=== PATIENT | female | born 1995 ===

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

== ENCOUNTER → 2017-06-14 | Outpatient (CLI) | payer BC, OTHER | END | disposition home or self-care (01) | LOC: C.RDSM 09:10 | PROVIDERS: ATTEND Internal Medicine | DX: S89.90XA Unspecified injury of unspecified lower leg, initial encounter (principal); X58.XXXA Exposure to other specified factors, initial encounter ==

== ENCOUNTER → 2017-06-15 | Outpatient (CLI) | payer BC, OTHER ==
--- NOTE | 2017-06-15 17:14 | DIAGNOSTIC IMAGING REPORT ---
LEFT KNEE MRI HISTORY: Left knee injury and pain. COMPARISON STUDY: Left knee 06/14/2017. TECHNIQUE: Multiplanar multisequence MRI of the left knee was performed according to standard department protocol without the use of contrast. FINDINGS: Menisci: Tiny focus of increased T2 signal within the body of the medial meniscus suggestive of degeneration. No evidence for tear within the medial or lateral meniscus. Ligaments: Full-thickness ACL tear. The PCL, MCL, and LCL are intact. Extensor mechanism: The quadriceps tendon and patellar ligament are intact. Articular cartilage and bone: No fracture or dislocation. Small areas of marrow edema seen within the lateral femoral condyle and tibial plateaus consistent with bone contusions. Cartilage spaces are maintained. Joint effusion: Moderate. Soft tissues: Soft tissue edema surrounding the knee likely due to the trauma. There is also small amount of edema within the distal vastus lateralis muscle consistent with a muscular strain. IMPRESSION: 1. Full-thickness ACL tear. 2. Moderate joint effusion. 3. Small bone contusions within the lateral femoral condyle and tibial plateaus. No fractures. Electronically signed by: Bryson Olguin M.D. 06/15/2017 5:12 PM Dictated Date/Time: 06/15/2017 5:07 PM
== END | disposition home or self-care (01) ==
LOC: C.MRIBC 16:09
PROVIDERS: ATTEND Physician Assistant
DX: S89.90XA Unspecified injury of unspecified lower leg, initial encounter (principal); X58.XXXA Exposure to other specified factors, initial encounter

== ENCOUNTER → 2017-07-02 | Day surgery (SDC) | payer BC, OTHER ==
[2017-06-22 15:49] VITALS: Ht 188 cm; Wt 70.5 kg
[~2017-07-02] VITALS: Ht 188 cm; Wt 70.5 kg
[~2017-07-02] MED LIST: ATROPINE SULFATE 0.1 MG/ML 5ML SYR IV PRN; BUPIVACAINE 0.25% 30 ML VIAL ONE; BUPIVACAINE/EPINEPHRINE 0.5% MPF 1:200,000 30 ML VIAL ONE; CEFAZOLIN 2000MG IV PUSH 15 ML IV SCH; CEFTRIAXONE SOD 1 GM VIAL ONE; CEFTRIAXONE SOD INJ 2,000 MG in DEXTROSE 5% 50ML 50 ML IV STA; DEXAMETHASONE SOD INJ 4 MG/ML VIAL ONE; EpHEDrine SULFATE INJ 50 MG/ML AMP IV PRN; EpINEphrine HCL INJ 1 MG/ML 1ML SYRINGE ONE; FENTANYL CITRATE INJ 50 MCG/1 ML 2 ML VIAL IV PRN; FENTANYL CITRATE INJ 50 MCG/1 ML 2 ML VIAL ONE; HYDROmorphone INJ 0.5 MG/0.5 ML SYR IV PRN; HYDROmorphone INJ 0.5 MG/0.5 ML SYR ONE; KETOROLAC TROMETHAMINE 30 MG/ML VIAL IV. PRN; LACTATED RINGER'S 1000ML 1,000 ML IV SCH; LIDOCAINE HCL 2% 2 ML VIAL (20MG/ML) ONE; MIDAZOLAM HCL 1 MG/ML 2ML VIAL ONE; ONDANSETRON INJ 2 MG/ML 2 ML VIAL IV PRN; ONDANSETRON INJ 2 MG/ML 2 ML VIAL ONE; OXYCODONE/ACETAMINOPHEN 5-325 TAB PO PRN; PROMETHAZINE HCL INJ 12.5 MG in SODIUM CHLORIDE 0.9% 50ML 50 ML IV PRN; PROPOFOL IV EMULSION 10 MG/ML 20 ML VIAL IV ONE; SODIUM CHLORIDE 0.9% 1000ML 1,000 ML IV SCH
--- NOTE | 2017-07-02 06:47 | History & Physical Bridge Note ---
H&P Re-Evaluation Bridge Note: I have examined the patient, reviewed the History & Physical and in the interval since the performance of the History & Physical I have noted the following changes of clinical significance:consent obtained. No changes noted
--- NOTE | 2017-07-02 06:49 | Discharge Instructions ---
Discharge Instructions Date of Service Jul 02, 2017. Visit Reason for Visit: Left Knee Acl Tear Discharge Discharge Diagnosis / Problem: same Discharge Goals Goal(s): Decrease discomfort, Improve function Medications Stopped Medications Name(s): no bcp's Restart Stopped Medication(s): use all scripts except any BCP Activity Recommendations Activity Limitations: as noted below Lifting Limitations: until after follow-up appointment Exercise/Sports Limitations: until after follow-up appointment May Resume Sexual Activity: after follow-up appointment Shower/Bathe: keep incision dry Driving or Machine Use: Weightbearing Status: Left weightbearing (as tolerated) Anesthesia . Post Anesthesia Instructions: If you have had General Anesthesia or IV Sedation: * Do not drive today. * Resume driving when surgeon permits. * Do not make important decisions or sign legal documents today. * Call surgeon for: 1. Temperature elevations greater than 101 degrees F. 2. Uncontrollable pain. 3. Excessive bleeding. 4. Persistent nausea and vomiting. 5. Medication intolerance (nausea, vomiting or rash). * For nausea and vomiting use only clear liquids such as: tea, soda, bouillon until nausea subsides, then gradually increase diet as tolerated. * If you have any concerns or questions, call your surgeon's office. If physician is unavailable and it is an emergency, call 911 or go to the nearest emergency room. . Instructions / Follow-Up Instructions / Follow-Up The following instructions are a useful guide to questions you may have after your Anterior Cruciate Ligament Reconstruction surgery. If you have any questions contact the office at . ACTIVITY RECOMMENDATIONS: * Heavy manual labor is not permitted until 4-6 months after surgery. * Sports are not permitted until 6-9 months after surgery. * Return to activity is individualized. * DRIVING: Driving is not permitted until 3-4 weeks after surgery at a minimum. Please ask your doctor when it is safe to resume driving. If you have an automatic vehicle and your left leg has been operated on, then you may begin driving as soon as you are comfortable and can drive safely. * BATHING: You may shower or sponge-bathe immediately after surgery. The dressing will need to be covered with a plastic bag or plastic wrap until the dressing is changed on the fourth or fifth day after surgery. Once the dressing has been changed on the fourth or fifth day after surgery, you may shower and get the incision wet. * Wash with regular soap and water. * Do not bathe (submerge the incision), soak, swim or use a hot tub until the incision is completely healed over with normal skin and the doctor has given the OK to proceed. * There is no need to apply any ointments, powders or salves to your incision. * Do not apply alcohol or hydrogen peroxide directly to the incision. Diluted peroxide (50:50 mixture with sterile saline) may be used to clean dried blood from around the incision area. WORK/SCHOOL: * You may return to sedentary work or school when you are feeling comfortable. This is usually 3-7 days after surgery. * Expect increased discomfort with increased activity. Continue to elevate and ice the leg as much as possible. DIET: * Resume previous diet. MEDICATIONS: * You will have a prescription for pain medication and an anti-inflammatory medication after surgery. Use the pain pills for severe pain and the anti-inflammatory for less severe pain. * Once the pain pills have run out, try to use the anti-inflammatory. If this is not effective then contact the office for assistance. * The pain medication may cause nausea, constipation and sleepiness. You should see how they affect you before driving or similar activity. * The anti-inflammatory may cause stomach upset and bleeding. If this occurs, let your doctor know immediately . * Some patients may need blood clot prevention. This can be done with either a pill or a simple shot. Your doctor will advise you on when to begin these medications and how to take them. * Do not take aspirin or other anti-inflammatory products (i.e. Advil or Aleve ) if taking blood thinner medication. * Take a stool softener like Colace or a stimulant like Senokot to prevent constipation. SPECIAL CARE INSTRUCTIONS: The following instructions are a useful guide to questions you may have after your surgery. If you have any questions contact the office at . ICE: * You have the option of an ice cooler, gel packs or ice bags. * If you have an ice cooler, refer to the instructions for that device. * If you do not have an ice cooler, then you will need to use ice bags or gel packs. * Do not apply ice directly to the skin. * Use a thin dressing or stockinet between the skin and ice bag. * Apply ice for 20-30 minutes and repeat every 2-4 hours. This is especially important for the first 7-10 days after surgery. * Once the pain improves, use ice as needed. * The ice cooler can be used continuously. ELEVATION: * Keep your leg elevated at or above the level of your heart as much as possible. * Expect some increased discomfort and swelling if you are standing for any length of time. * When lying down, avoid placing anything under your knee. Rather, prop your leg up by placing several pillows under your heel or calf. DRESSING: * Your dressing will be changed at your first therapy appointment approximately 4-5 days after surgery. * Band-Aids, tape strips or gauze may be applied. You may then change your dressing daily. * Always wash your hands prior to touching the incision area. * Reapply dressing followed by the Sang wrap or Tubi-grips stockinet, ice cooling pad and then the brace. * Once the stitches are removed, you may leave the wound open to air or cover with an Sang Bandage or Tubi-grips stockinet. * If you have been given a white elastic stocking (ANGELICA hose), wear as much as possible for the first 1-3 weeks depending on swelling. * Expect some bloody drainage for the first few days after surgery. * Leave the tape strips in place for 5-7 days. * Band-Aids and gauze may be changed daily. CRUTCHES: * You will need to use crutches after surgery. * Until your first doctor's appointment, you must use your crutches at all times when walking and should put no more than 50% of your normal weight on the surgical leg. * After your first doctor's appointment, you may gradually progress to full weight bearing and discontinue crutches as tolerated under the guidance of your therapist. * If you have had a microfracture procedure done, you may be advised to be non- weight bearing for up to 6 weeks. BRACE: * After surgery, you will be placed into a range of motion brace locked with your leg straight. This brace is to be worn at all times when walking (even with the crutches) and sleeping until your first doctors appointment. * The brace may be removed for therapy. * After your first therapy appointment, your therapist will open the brace to allow bending of the knee once your muscles are working better. * Until your first doctor's appointment, you should sleep with your brace locked with your knee fully straight. * If you have chosen to use a functional ACL brace then this brace will be supplied about 2-3 months after your surgery. During that time, you will attend therapy 2- 3 times per week. You will also need to do daily exercises for range of motion and strength as instructed. PROBLEMS/QUESTIONS: * If you have any problems such as severe pain, numbness, tingling or high fevers or if you have any questions, please contact the office at [phone]. * It is not uncommon to have some numbness and tingling after the surgery especially if you have had a nerve block done. This should gradually improve over the first 1- 2 days. If this persists longer or worsens then contact the office. FOLLOW UP VISIT: * If not already scheduled, please call the office at to schedule follow-up appointments for approximately 10 days and one month after surgery followed by monthly appointments thereafter. Diet Recommendations Recommended Home Diet: resume previous diet Procedures Procedures Performed: see op note Pending Studies Studies pending at discharge: no Medical Emergencies . Who to Call and When: Medical Emergencies: If at any time you feel your situation is an emergency, please call 911 immediately. . Non-Emergent Contact Non-Emergency issues call your: Specialist Call Non-Emergent contact if: wound has increased drainage, wound has increased redness, wound has increased pain . . "Provider Documentation" section prepared by Boris Fenton. .
--- NOTE | 2017-07-02 09:55 | [facility] Post Operative Brief Note ---
Immediate Operative Summary Operative Date Jul 02, 2017. Pre-Operative Diagnosis Left Knee Anterior Cruciate Ligament Tear Post-Operative Diagnosis Same Procedure(s) Performed Left Knee Arthroscopic Anterior Cruciate Ligament Reconstruction With Patella Tendon Autograft Surgeon Dr. Fenton Auto Emissions Technician Surgeon(s) COLLIN Roque, Fellow Estimated Blood Loss 50 mL Findings Consistent with Post-Op Diagnosis Fluids (cc crystalloids) 1200cc Specimens None Drains None Anesthesia Type General Regional Complication(s) none Disposition Accompanied Pt To Recovery: no Disposition: Recovery Room / PACU
--- NOTE | 2017-07-02 10:10 | OPERATIVE REPORT ---
DATE OF OPERATION: 07/02/2017 SURGEON: Dr. Fenton. PROPULSION ENGINEER: Dano. SECOND PROPULSION ENGINEER: Aris Llamas PA-C. PREOPERATIVE DIAGNOSIS: Anterior cruciate ligament tear, left knee, with bone contusion and possible meniscus tear. POSTOPERATIVE DIAGNOSES: 1. Anterior cruciate ligament tear. 2. Bone contusion without any articular breakthrough. 3. Incomplete healing lateral meniscus tear, posterior horn. PERIOPERATIVE SITUATION: Medically cleared female who tore her ACL playing basketball, now has virtually full range of motion and is ready for surgical treatment. Preoperative assessment including MRI scan and x-ray revealed the above findings. PROCEDURE: The patient properly identified, site verified, consent verified, 2 grams of Ancef confirmed as being given. The left lower extremity was prepped and draped in routine fashion after knee was examined revealing a grossly positive Venancio, pivot shift and anterior drawer test. There was no collateral or posterolateral corner insufficiency. The knee was then prepped and draped in the usual routine fashion. Tourniquet inflated to 275 mmHg for a total of 59 minutes. An anterior incision made and the central third of the patellar tendon harvested with bone blocks being 20 x 10 x 5 off the patella and 30 x 10 x 5 off the tibia. They were then tagged with #2 Ethibond on the tibial side and then an Arthrex TightRope on the patellar side. It was then placed in a sterile specimen container. The knee was then arthroscoped with the inferomedial and inferolateral portals made through the harvest site. Inspection of the joint revealed healthy articular surfaces of all 3 compartments with the exception of a minor small area on the medial side where there was grade 2 change and the area of the bone contusion was visible but there was no breakthrough. The stump of the ACL was large and sitting anteriorly, this was resected. The notch was trephine shaped and was enlarged slightly. Fibers were left on the femoral attachment site to virginie it. Once the scoping part and the cleaning part was all done, the tibial guide was placed and guide pin passed in excellent position and then a 10 mm tunnel made. All bone debris removed. Because of the position of the tunnel being appropriately horizontal and medial, the transtibial guide was able to be placed right in the center of the footprint remnant of the ACL on the femur and the guide pin passed and a 10 mm socket made there. It was about 25 mm in length. All bone debris removed. The graft was then shuttled and secured on the femur with the Arthrex TightRope with excellent purchase and then secured on the tibia with 10 degrees of flexion with a 9 x 20 mm fully threaded screw with excellent purchase. The knee was then reexamined, revealing stable Venancio and pivot shift. The wound was then irrigated, tourniquet was deflated, it was 59 minutes. The area of this fascia closed with 0 Vicryl, the paratenon closed with 2-0 Vicryl after grafting used to graft the harvest site at the patella. The wound irrigated and then closed using #2 plain and running subcuticular 2-0 Prolene for the skin. The area of exit site proximally was closed with 2-0 nylon. The patient's wound was then appropriately dressed and protected with the brace. The patient will be weightbearing to tolerance. Start range of motion tomorrow. DVT prophylaxis with aspirin. No control pills. I attest to the content of the Intraoperative Record and any orders documented therein. Any exception s are noted below.
[2017-07-02 11:45] VITALS: BP 108/52; PULSE 66; O2SAT 100
--- NOTE | 2017-07-02 11:48 | Anesthesiology Progress Note ---
Anesthesia Post Op Note Date & Time Jul 02, 2017 at 11:48 Vital Signs Pain Intensity: 4 Vital Signs Past 12 Hours Date Time Temp Pulse Resp B/P (MAP) Pulse Ox O2 Delivery O2 Flow Rate FiO2 07/02/17 11:02 58 16 130/81 (97) 98 Room Air 07/02/17 10:57 53 16 126/72 96 Room Air 07/02/17 10:51 64 8 07/02/17 10:51 67 8 124/80 100 07/02/17 10:51 64 8 07/02/17 10:51 67 8 124/80 100 07/02/17 10:46 73 21 99 07/02/17 10:46 73 21 99 07/02/17 10:46 73 21 07/02/17 10:46 73 21 07/02/17 10:45 123/75 07/02/17 10:45 123/75 07/02/17 10:43 76 22 07/02/17 10:43 76 22 100 07/02/17 10:43 76 22 100 07/02/17 10:43 76 22 07/02/17 10:42 151/62 07/02/17 10:42 151/62 07/02/17 10:38 71 18 07/02/17 10:38 71 18 07/02/17 10:38 76 18 100 07/02/17 10:38 76 18 100 07/02/17 10:37 73 8 100 07/02/17 10:37 68 8 07/02/17 10:35 125/75 07/02/17 10:32 72 8 98 07/02/17 10:32 71 8 07/02/17 10:31 139/81 07/02/17 10:27 18 07/02/17 10:27 81 18 07/02/17 10:25 132/79 07/02/17 10:22 83 14 100 07/02/17 10:22 88 14 07/02/17 10:21 142/69 07/02/17 10:17 90 10 07/02/17 10:17 91 10 100 07/02/17 10:16 133/80 07/02/17 10:12 102 19 99 07/02/17 10:12 101 19 07/02/17 10:10 112/89 07/02/17 10:07 104 07/02/17 10:07 105 100 07/02/17 10:06 36.5 99 14 121/71 99 Mask 6 07/02/17 10:06 121/71 07/02/17 08:17 0 07/02/17 08:12 77 10 100 07/02/17 08:12 75 07/02/17 08:11 78 35 100 07/02/17 08:11 78 07/02/17 08:10 112/61 07/02/17 08:06 78 07/02/17 08:06 77 29 100 07/02/17 08:05 122/65 07/02/17 08:02 72 2 100 07/02/17 08:02 71 07/02/17 08:00 99/68 07/02/17 07:57 72 07/02/17 07:57 71 6 100 07/02/17 07:56 115/63 07/02/17 07:52 81 07/02/17 07:52 80 20 100 07/02/17 07:50 122/69 07/02/17 07:47 93 30 100 07/02/17 07:47 84 07/02/17 07:45 114/65 07/02/17 07:42 64 0 07/02/17 06:39 37.2 77 16 120/72 (88) 97 Room Air Notes Mental Status: alert / awake / arousable, participated in evaluation Pt Amnestic to Procedure: Yes Nausea / Vomiting: adequately controlled Pain: adequately controlled Airway Patency, RR, SpO2: stable & adequate BP & HR: stable & adequate Hydration State: stable & adequate Anesthetic Complications: no major complications apparent
--- NOTE | 2017-07-02 12:27 | [facility] Operative Report ---
Operative Report Operative Date Jul 02, 2017. Pre-Operative Diagnosis Left Knee Anterior Cruciate Ligament Tear Post-Operative Diagnosis Left knee same Procedure(s) Performed Left Knee Arthroscopic Anterior Cruciate Ligament Reconstruction With Patella Tendon Autograft Surgeon Dr. Fenton Securities Consultant Surgeon(s) COLLIN Roque, Fellow Estimated Blood Loss 50 mL Findings ACL tear left knee Fluids 1200cc Specimens None Drains None Anesthesia Type General Regional Complication(s) none Disposition no Recovery Room / PACU Indications This 22-year-old effort Armenian female presents to the office with complaints of left knee instability after injuring herself in basketball. She elected to proceed with surgical intervention after being educated about potential risks and outcomes. Preoperative imaging was obtained. Description of Procedure Patient was administered a regional block and then taken to the operating room where she was given general anesthesia. She was prepped and draped in usual sterile fashion. Please see Dr. Fenton's operative report for specifics of the procedure. I was present for the entire case from initial patient positioning through final wound closure. Assistance was provided in arthroscopy , tissue retraction, hemostasis, graft harvest, graft placement, hardware placement, and final wound closure. Patient was taken to the recovery room in satisfactory condition. I attest to the content of the Intraoperative Record and any orders documented therein. Any exceptions are noted below.
== END | disposition home or self-care (01) ==
LOC: X.SURG 06:26
PROVIDERS: ATTEND Physical Medicine & Rehabilitation Sports Medicine
DX: S83.512A Sprain of anterior cruciate ligament of left knee, initial encounter (principal); X58.XXXA Exposure to other specified factors, initial encounter; Y93.67 Activity, basketball

== ENCOUNTER → 2017-07-26 | Outpatient (CLI) | payer BC, OTHER | END | disposition home or self-care (01) | LOC: C.RDSM 13:59 | PROVIDERS: ATTEND Physical Medicine & Rehabilitation Sports Medicine | DX: Z98.890 Other specified postprocedural states (principal) ==